=== PATIENT | female | born 1990 | race Caucasian/White ===

== ENCOUNTER → 2025-02-13 | Outpatient (CLI) | payer MEDICAID, SELFPAY ==
[2025-02-13 11:07] LABS: Erythrocyte Sedimentation Rate 4 mm/hr (0-30)
[2025-02-13 11:32] LABS: CRP < 3.00 mg/L (0.0-3.0)
== END | disposition home or self-care (01) ==
PROVIDERS: Referring Provider Student in an Organized Health Care Education/Training Program; Visit Provider Student in an Organized Health Care Education/Training Program
DX: K51.20 Ulcerative (chronic) proctitis without complications (principal)
CPT/HCPCS: 36415; 85652; 86140

== ENCOUNTER → 2025-07-04 | Outpatient (CLI) | payer MEDICAID, SELFPAY ==
[2025-07-04 10:18] LABS: Hematocrit 40.0 % (37-47); Hemoglobin 13.7 g/dL (12.0-15.0); Immature Granulocytes Count 0.010 X10^3/uL (0.0-0.0); Mean Corp Hgb Conc 34.3 g/dL (32-36); Mean Corpuscular Volume 84.7 fL (81-99); Mean Platelet Vol. 9.3 fl (6.2-12.0); NRBC Flagged by Analyzer 0 % (0-5); Platelet Count 248 K/mm3 (150-450); RBC Distribution Width CV 12.2 % (11.6-14.6); RBC Distribution Width SD 37.2 fl (35.1-43.9); Red Blood Count 4.72 M/mm3 (4.2-5.4); White Blood Count 5.9 K/mm3 (4.4-11.0)
[2025-07-04 10:24] LABS: Partial Thromboplast Time 26.4 Seconds (24.1-36.2)
[2025-07-04 11:35] LABS: CRP < 3.00 mg/L (0.0-3.0)
[2025-07-08 09:08] LABS: Calprotectin, Stool 20 ug/g (0-120)
== END | disposition home or self-care (01) ==
LOC: LAB 09:09
PROVIDERS: Referring Provider Student in an Organized Health Care Education/Training Program; Visit Provider Student in an Organized Health Care Education/Training Program
DX: K51.20 Ulcerative (chronic) proctitis without complications (principal)
CPT/HCPCS: 36415; 83993; 85025; 85652; 85730; 86140

== ENCOUNTER 2025-09-19 10:08 | Day surgery (SDC) | payer MEDICAID, SELFPAY ==
--- NOTE | 2025-09-19 10:29 | PRE.ANES_ITS ---
ASA Classification* ASA Classification ASA Classification: 2 Assessment & Plan Anesthesia* Anesthesia Assessment Anesthesia Assessment: Discussed sedation and/or anesthesia options, risks, benefits, and alternatives with patient/parents/legal guardian/POA. Questions invited. The patient/parents/legal guardian/POA seems to understand and agrees to proceed with anesthesia plan. Reviewed the physical assessment, medical history, allergy history and patient home medications list prior to surgery/procedure/anesthetic and documented any changes. Performed airway and anesthesia risk assessments. 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 When Was Last Pacemaker Check QUESTION #4 FULL TEXT: You/Your Family Experience fever (hyperthermia) with Anesthesia Last Oral Intake Last Oral intake: Last Oral Intake NPO since Meds taken in AM with sips of water? Meds patient instructed to take am of surgery PONV PONV - business initiatives manager: PONV - business initiatives manager Female Yes 09/16/25 15:17 HX of Motion Sickness No 09/16/25 15:17 HX of N/V After Surgery No 09/16/25 15:17 Non-Smoker Yes 09/16/25 15:17 Duration of Surgery greater No 09/16/25 15:17 than 60 minutes Number of Risk Factors 2 09/16/25 15:17 PONV Score Moderate Risk 09/16/25 15:17 Respiratory Assessment Respiratory Assessment - business initiatives manager: Respiratory Tract Infection Hx - business initiatives manager Hx Respiratory Tract Infection No 09/16/25 15:17 STOP Sleep Apnea STOP Sleep Apnea - business initiatives manager: STOP Sleep Apnea - business initiatives manager Hx Hypertension No 09/16/25 15:17 Hx Sleep Apnea No 09/16/25 15:17 CPAP BIPAP Do you snore loudly (louder No 09/16/25 15:17 than talking or can be heard Do you often feel tired/ No 09/16/25 15:17 fatigued/ sleepy during daytime? Has anyone observed you stop No 09/16/25 15:17 breathing during sleep? STOP Results Negative 09/16/25 15:17 QUESTION #5 FULL TEXT : Do you snore loudly (louder than talking or can be heard through closed doors)? 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 Specify any problems Hx of Preganancy in last 3 No 09/16/25 15:17 Months Nurse Filling Out Transfusion [facility] 09/16/25 15:17 & Questions: Date: 09/16/25 09/16/25 15:17 Time: 15:18 09/16/25 15:17 Patient unable to answer at this time (ie. confused, unrespo /Reproduction History /Reproductive History - business initiatives manager: /Reproductive Hx- business initiatives manager Hx Now No 09/16/25 15:17 Gestational Age (in weeks): EDC: Hx Hx Para Hx Section SAB Yes 09/16/25 15:17 Does the father of the baby or his family experience fever w Father of the baby Malignant Hypertension history comment Active Medications Active Medications: Current Medications Generic Name Dose Route Start Last Admin Trade Name Freq PRN Reason Stop Dose Admin Lactated Ringer's 1,000 mls @ 15 mls/hr 09/19/25 10:30 IV .Q48H TIMOTHY PFSH Medical History Alcohol use Low iron Migraine headache Ulcerative proctitis, chronic Non-smoker anxiety Home Medications ?Medication ?Instructions ?Recorded ?Last Taken ?Type sertraline 25 mg tablet 25 mg PO QDAY 02/13/25 Unkno wn History mesalamine 1,000 mg rectal 1 g IA QHS 3 weeks #30 ea 1 Unknown Rx suppository Allergy/AdvReac Type Severity Reaction Status Date / Time No Known Allergies Allergy Verified 09/16/25 15:16 Family History Mother Hypertension Grandmother Hypertension Surgical History [place] teeth extracted Social History Smoking Status: Never smoker alcohol intake: current alcohol intake frequency: a few times a week substance use type: does not use Review of Systems (Anesthesia) ROS Narrative System reviewed and no additional complaints, except as documented.
--- NOTE | 2025-09-19 10:30 | PCM.HP.STD ---
HPI - General General Date of Admission: 09/19/25 Date of Service: 09/19/25 Chief Complaint: Ulcerative colitis HPI Narrative TAY DAVILA, is a 35 F who presents [Chief Complaint: ulcerative proctitis BGI established 12.4.24 with PMHx of proctitis since 2016. Pt has been on mesalamine and suppositories since then which controls her symptoms. Pt is 8 months . Last colonoscopy 2016 Sigmoidoscopy in 2021 and 2022 OV 4.16.25 Pt doing well today. She had her child about 2.5 months ago. She denies any flares in her UC. She is having daily bm without blood. She has been taking oral mesalamine once daily but she prefers the suppositories. Continue mesalamine Biochemical work up; ESR, CRP wnl Stool; not completed OV 7.16.25 Pt doing well since last visit. She denies any flares. No diarrhea, blood in her stool or urgency. She continues with mesalamine suppositories. Feels flares are related to stress Stool calprotectin 07/09/2025: 20 Laboratory findings 07/08/2025 CBC normal, CRP normal OV 08/27/2025 patient had recent GI illness. Everyone in her family was having nausea vomiting and diarrhea. This has since resolved. Over the past month patient has had generalized abdominal pain. It is associated with the need to have a bowel movement. She denies loose stool, mucus or blood in her stool. She continues with mesalamine. [facility] Medical History Alcohol use Low iron Migraine headache Ulcerative proctitis, chronic Non-smoker anxiety Home Medications ?Medication ?Instructions ?Recorded ?Last Taken ?Type sertraline 25 mg tablet 25 mg PO QDAY 02/13/25 Unknown History mesalamine 1,000 mg rectal 1 g [place] QHS 3 weeks #30 ea 08/30/25 Unknown Rx suppository Allergy/AdvReac Type Severity Reaction Status Date / Time No Known Allergies Allergy Verified 09/19/25 10:30 Family History Mother Hypertension Grandmother Hypertension Surgical History [place] teeth extracted Social History Smoking Status: Never smoker alcohol intake: current alcohol intake frequency: a few times a week substance use type: does not use ROS Constitutional Constitutional: Denies fatigue, fever(s), poor appetite, weight gain or weight loss Gastrointestinal Gastrointestinal: Denies belching, bloating, change in bowel habits, change in stool character, chewing difficulty, coffee ground emesis, constipation, cramping, diarrhea, dyspepsia, dysphagia, early satiety, excessive flatus, fecal incontinence, heartburn, hematemesis, hematochezia, hemorrhoids, loose stools, melena, nausea, odynophagia, rectal bleeding, tenesmus, vomiting or weight changes Physical Exam Const alert, oriented x3, no apparent distress and healthy appearing General Appearance: cooperative GI normal to inspection, nondistended, normoactive bowel sounds, soft to palpation, non-tender and non-distended Percussion: normal to percussion Rectal Exam: deferred Assessment & Plan Assessment/Plan (1) Ulcerative proctitis: PLAN: Assessment and Plan Assessment and Plan (1) Ulcerative proctitis: Status: Acute Plan: Tay is a 35-year-old female patient with past medical history of ulcerative colitis diagnosed in 2015 historically well-controlled with mesalamine. Patient had recent GI illness that has since resolved. Everyone in her family had similar symptoms. Patient notes having generalized abdominal pain over the past month. Blood work from July 2025 with normal CRP. Calprotectin also normal. Most recent sigmoidoscopy in 2022. Recommended repeat sigmoidoscopy to evaluate for possible ulcerative colitis flare. We may consider colonoscopy pending result. In the interim she will continue mesalamine. - Sigmoidoscopy - Consider colonoscopy - Continue mesalamine - Follow-up after procedure ]
[2025-09-19 10:32] VITALS: BP 105/83; PULSE 76; RESP 16; TEMP 36.6; O2SAT 99; BMI 24.4
[2025-09-19 10:37] LABS: Internal QC Validated? YES +Cl - CLEAR BKGD; Pregnancy, Urine Negative Negative; Record Kit Lot#,Urine Preg 980607
[2025-09-19 11:55] VITALS: BP 128/86; O2SAT 100
[2025-09-19 12:05] VITALS: BP 130/77; O2SAT 100
--- NOTE | 2025-09-19 12:12 | OP.PROVAT_ITS ---
09/19/2025 No Primary Care Physician Re : Flexible Sigmoidoscopy procedure for Samantha Baker Dear Care Physician This procedure was performed on August. My impressions and recommendations are as follows: Impressions : - The anus, rectum, sigmoid colon, descending colon and recto-sigmoid colon are normal. - No specimens collected. Recommendations : My findings are described in the full procedure note, which is enclosed. If I can be of further assistance, please feel free to contact me at . Sincerely, Arthur Villafuerte, 09/19/2025 12:11:52 PM This report has been signed electronically.
--- NOTE | 2025-09-19 12:12 | OP.FLEXSIG_ITS ---
Patient Name: Samantha Baker Procedure Date: 09/19/2025 11:48 AM Date of : 1990 Age: 35 Procedure: Flexible Sigmoidoscopy Indications: High risk colon cancer surveillance: Ulcerative proctitis Providers: Arthur Villafuerte DO Medicines: None Patient Profile: This is a 35 year old female. Refer to note in patient chart for documentation of history and physical. Last Colonoscopy: several years ago. This patient has ulcerative proctitis, is taking mesalamine and is asymptomatic. Jewel Trevino Index (HBI): Well-being = 0 (very well), Abdominal pain = 0 (none), Abdominal mass = 0 (none), Number of liquid stools = 0 (per day), Number of complications = 0 and Total HBI Score = 0 (clinical remission). Abhijeet classification (Ulcerative Colitis): Severity of disease: S0 (in remission, asymptomatic). Simple Clinical Colitis Activity Index: Bowel frequency = 0 (1 to 3 per day), Urgency of defecation = 0 (none), Blood in stool = 0 (none), Well-being = 0 (very well), Number of extra-intestinal manifestations = 0 and Total SCCAI Score = 0. Complications: No immediate complications. Procedure: Pre-Anesthesia Assessment: - Prior to the procedure, a History and Physical was performed, and patient medications and allergies were reviewed. The patient is competent. The risks and benefits of the procedure and the sedation options and risks were discussed with the patient. All questions were answered and informed consent was obtained. Patient identification and proposed procedure were verified by the physician in the pre-procedure area. Mental Status Examination: alert and oriented. Airway Examination: normal oropharyngeal airway and neck mobility. Respiratory Examination: clear to auscultation. CV Examination: normal. Prophylactic Antibiotics: The patient does not require prophylactic antibiotics. Prior Anticoagulants: The patient has taken no anticoagulant or antiplatelet agents except for NSAID medication. ASA Grade Assessment: II - A patient with mild systemic disease. After reviewing the risks and benefits, the patient was deemed in satisfactory condition to undergo the procedure. The anesthesia plan was to use monitored anesthesia care (MAC). Immediately prior to administration of medications, the patient was re-assessed for adequacy to receive sedatives. The heart rate, respiratory rate, oxygen saturations, blood pressure, adequacy of pulmonary ventilation, and response to care were monitored throughout the procedure. The physical status of the patient was re-assessed after the procedure. After obtaining informed consent, the endoscope was passed under direct vision. Throughout the procedure, the patient's blood pressure, pulse, and oxygen saturations were monitored continuously. The colonoscope was introduced through the anus and advanced to the descending colon. The flexible sigmoidoscopy was accomplished without difficulty. The patient tolerated the procedure well. The quality of the bowel preparation was good. Scope In: 11:59:02 AM Scope Out: 12:04:41 PM Total Procedure Duration Time 0 hours 5 minutes 39 seconds Findings: The perianal and digital rectal examinations were normal. The anus, rectum, recto-sigmoid colon, sigmoid colon and descending colon appeared normal. Impression: - The anus, rectum, sigmoid colon, descending colon and recto-sigmoid colon are normal. - No specimens collected. Procedure Code(s): --- Professional --- 86937, Sigmoidoscopy, flexible; diagnostic, including collection of specimen(s) by brushing or washing, when performed (separate procedure) CPT copyright 2021 [employer]. All rights reserved. The codes documented in this report are preliminary and upon surgical coder review may be revised to meet current compliance requirements. Arthur Villafuerte DO 09/19/2025 12:11:52 PM This report has been signed electronically. Number of Addenda: 0 Note Initiated On: 09/19/2025 11:48 AM
[2025-09-19 12:19] VITALS: BP 105/83
== END 2025-09-19 12:22 | disposition home or self-care (01) ==
LOC: EN 10:09 → AC 10:11
PROVIDERS: Anesthesiology; Visit Provider Internal Medicine Gastroenterology
PROC: 0DJD8ZZ Inspection of Lower Intestinal Tract, Via Natural or Artificial Opening Endoscopic (ICD-10-PCS; CPT 45330; principal; 2025-09-19 11:10)
DX: K51.20 Ulcerative (chronic) proctitis without complications (principal)
CPT/HCPCS: 45330; 81025